=== PATIENT | female | born 1995 | race Caucasian/White ===

== ENCOUNTER 2017-09-07 22:35 | Inpatient (IN) | END 2017-09-09 21:00 | disposition home or self-care (01) | DRG 778 ==

== ENCOUNTER 2017-09-28 06:15 | Inpatient (IN) | END 2017-10-01 15:50 | disposition home or self-care (01) | DRG 765 ==

== ENCOUNTER 2018-09-03 18:45 | Outpatient (CLI) | payer MEDICAID ==
[~2018-09-03] VITALS: Ht 165.1 cm; Wt 75.0 kg
[2018-09-03 19:00] VITALS: Ht 165.1 cm; Wt 75.0 kg
[2018-09-03 19:01] VITALS: BP 117/66; PULSE 94; RESP 17
[2018-09-03] MEDS ORDERED: TERBUTALINE 1 MG/ML INJ SC SCH (19:40)
[2018-09-03] MEDS ORDERED: LACTATED RINGER'S 1,000 ML IV ONE (19:45)
[2018-09-03] MEDS ORDERED: LACTATED RINGER'S 1,000 ML IV* SCH (20:40)
[2018-09-03] MEDS ORDERED: PREN-93 PO (22:56)
[2018-09-03] MEDS ORDERED: FER325 PO (22:56)
--- NOTE | 2018-09-03 23:11 | PN ---
Triage Information Date/Time 09/03/18 Reason for visit: labor Weeks of Gestation 34weeks /Para Diabetes: none Hypertention: none Additional information pain started since yesterday ,got worsen this am 0600 alleviated by resting ( youngest child 1yr old Objective Vital Signs Date Temp Pulse Resp B/P (MAP) Pulse Ox O2 O2 Flow FiO2 Time Delivery Rate 09/03/18 98.3 94 17 117/66 19:01 (83) Heart Rate: 150's Heart Rate Comments CAT I Contractions: >10 Minutes Apart Results/Medications Result Diagram: 09/03/182006 Results 24 hrs Laboratory Tests Test 09/03/18 19:30 09/03/18 20:07 Urine Color ISAC Urine Clarity TURBID A Urine pH 7.0 Urine Specific [place] 1.018 Urine Ketones NEGATIVE Urine Nitrite NEGATIVE Urine Bilirubin NEGATIVE Urine Urobilinogen NEGATIVE Urine Leukocyte Esterase NEGATIVE Urine Microscopic RBC 7 H Urine Microscopic WBC 10 H Urine Amorphous Crystals MANY A Urine Bacteria FEW A Urine Mucus FEW A Urine Hemoglobin 1+ H Urine Glucose 1+ H Urine Total Protein NEGATIVE White Blood Count 6.7 Red Blood Count 3.28 L Hemoglobin 9.8 L Hematocrit 29.5 L Mean Corpuscular Volume 89.9 Mean Corpuscular Hemoglobin 29.9 Mean Corpuscular Hemoglobin Concent 33.2 Red Cell Distribution Width 11.6 Platelet Count 234 Mean Platelet Volume 9.7 Immature Granulocytes % 0.300 Neutrophils % 63.0 Lymphocytes % 29.0 Monocytes % 7.0 Eosinophils % 0.4 Basophils % 0.3 Nucleated Red Blood Cells % 0.0 Immature Granulocytes # 0.020 Neutrophils # 4.2 Lymphocytes # 2.0 Monocytes # 0.5 Eosinophils # 0.0 Basophils # 0.0 Nucleated Red Blood Cells # 0.0 Medications Current Medications Lactated Ringer's 1,000 ml @ 125 mls/hr Q8H IV* ; Start 09/03/18 at 20:40 Imaging Results CVL3.3cm closed Disposition: Discharge Assessment/Plan A IUP 34weeks NIL Round ligament syndrome P rest RTH prn with routine labor instructions increase fluid intake SIMON MAZA MD Sep 03, 2018 23:11
--- NOTE | 2018-09-04 00:55 | TRIAGE ---
OB Triage Datetime Report Generated by CPN: 09/04/2018 00:54 Datetime: 09/03/2018 22:33 Stage of : OB Triage Assessment Type: Triage Labor Evaluation Frequency: Irritability/Irregular Monitor Mode: External Duration (sec)2399: 20-60 Quality: Mild Pattern: Normal: <= 5 Contractions in 10 Minutes Resting Tone [place]: Relaxed Heart Rate FHR Baseline Rate: 130 Monitor Mode: External US Variability: Moderate 6-25 bpm Accelerations: 15X15 Decelerations: Variable Category: Category II Datetime: 09/03/2018 22:30 Stage of : OB Triage Datetime: 09/03/2018 22:00 Stage of : OB Triage Labor Evaluation Frequency: Irritability/Irregular Monitor Mode: External Duration (sec)2399: 20-60 Quality: Mild Pattern: Normal: <= 5 Contractions in 10 Minutes Resting Tone [place]: Relaxed Heart Rate FHR Baseline Rate: 135 Monitor Mode: External US Variability: Moderate 6-25 bpm Accelerations: 15X15 Decelerations: None Category: Category I Datetime: 09/03/2018 21:34 Vaginal Exam Membrane Status: Intact Datetime: 09/03/2018 21:00 Stage of : OB Triage Labor Evaluation Frequency: Irritability/Irregular Monitor Mode: External Duration (sec)2399: 20-50 Quality: Mild Pattern: Normal: <= 5 Contractions in 10 Minutes Resting Tone [place]: Relaxed Heart Rate FHR Baseline Rate: 140 Monitor Mode: External US Variability: Moderate 6-25 bpm Accelerations: 15X15 Decelerations: Variable Category: Category II Datetime: 09/03/2018 20:18 Stage of : OB Triage Comments: Audible excessive movt. Datetime: 09/03/2018 20:05 Assessment Type: Triage Datetime: 09/03/2018 20:00 Stage of : OB Triage Labor Evaluation Frequency: Irritability/Irregular Monitor Mode: External Duration (sec)2399: 20-60 Quality: Mild Pattern: Normal: <= 5 Contractions in 10 Minutes Resting Tone [place]: Relaxed (Annotations: Abdomen soft to palpation) Heart Rate FHR Baseline Rate: 145 Monitor Mode: External US Variability: Moderate 6-25 bpm Accelerations: 15X15 Decelerations: None Category: Category I Datetime: 09/03/2018 19:41 Stage of : OB Triage Datetime: 09/03/2018 19:24 Stage of : OB Triage Datetime: 09/03/2018 19:21 Stage of : OB Triage Datetime: 09/03/2018 19:15 Stage of : OB Triage Assessment Type: Triage Maternal Assessment Level of Consciousness: Fully Conscious DTR's/Clonus: DTRs 2+; No Clonus Headache: Denies Blurred Vision: No Respiratory Effort: Unlabored; Regular Rhythm; Equal Expansion Breath Sounds, Left: Clear and Equal Breath Sounds, Right: Clear and Equal Nausea/Vomiting: Denies RUQ Epigastric Pain: Denies Lower Extremities Edema: None Degree: None Upper Extremities Edema: None Degree: None Facial Edema: None Fall Risk Assessment History of Falling: (0) No Secondary Diagnosis: (0) No Ambulatory Aid: (0) Bedrest/Nurse Assist IV Therapy: (0) No Gait: (0) Normal/Bedrest/Immobile Mental Status: (0) Oriented to Own Ability Fall Score: 0 Fall Risk Score Definition: No Risk: No action required Pain Assessment Pain Scale: 5 Pain Presence: Intermittent Pain Type: Cramping; Contraction; Pressure Pain Location: Abdomen; Back Pain Relief Measures: Comfort Measures Datetime: 09/03/2018 19:03 Assessment Type: Triage Maternal Assessment Level of Consciousness: Fully Conscious DTR's/Clonus: DTRs 2+; No Clonus Headache: Denies Blurred Vision: No Respiratory Effort: Unlabored; Regular Rhythm; Equal Expansion Breath Sounds, Left: Clear and Equal Breath Sounds, Right: Clear and Equal Nausea/Vomiting: Denies RUQ Epigastric Pain: Denies Lower Extremities Edema: None Degree: None Upper Extremities Edema: None Degree: None Facial Edema: None Fall Risk Assessment History of Falling: (0) No Secondary Diagnosis: (0) No Ambulatory Aid: (0) Bedrest/Nurse Assist IV Therapy: (0) No Gait: (0) Normal/Bedrest/Immobile Mental Status: (0) Oriented to Own Ability Fall Score: 0 Fall Risk Score Definition: No Risk: No action required Datetime: 09/03/2018 19:02 Time of Arrival: 09/03/2018 18:35 EGA: 34.0 Arrived By: Wheelchair Arrived From: Home Chief Complaint: Pt. came to ob triage c/o uc since 0600 this am Movement: Present Contractions: Irregular Time Contractions Began: 09/03/2018 06:00 Contractions: [id number] Rupture of Membranes: Denies Vaginal Bleeding: None Vaginal Discharge: Denies Recent Sexual Intercouse: Denies Abdominal Trauma: Not Applicable Patient Complaints: Contractions; Cramping; Back Pain Time Provider Notified: 09/03/2018 19:24 Provider Notified: Initial Plan: r/o labor
== END 2018-09-03 22:59 | disposition home or self-care (01) ==
LOC: OBT 18:45 → L-D 18:48 → OBT 22:59
PROVIDERS: ATTEND Obstetrics & Gynecology
DX: O60.03 Preterm labor without delivery, third trimester (principal); Z3A.34 34 weeks gestation of pregnancy
CPT/HCPCS: 36415; 76817; 81001; 85025; 87086; 96360; 96361; 96372; J3105; J7120; Z7500; G0463

== ENCOUNTER 2018-09-11 17:02 | Inpatient (IN) | payer MEDICAID ==
[~2018-09-11] VITALS: Ht 167.6 cm; Wt 74.8 kg
[~2018-09-11 17:02] MED LIST: FER325 PO; PREN-93 PO
[2018-09-11 17:09] VITALS: BP 100/63; Ht 167.6 cm; Wt 74.8 kg
--- NOTE | 2018-09-11 17:33 | TRIAGE ---
OB Triage Datetime Report Generated by CPN: 09/11/2018 17:33 Datetime: 09/11/2018 17:23 Stage of : OB Triage Assessment Type: Triage Maternal Assessment Level of Consciousness: Fully Conscious DTR's/Clonus: DTRs 2+; No Clonus Headache: Denies Blurred Vision: No Respiratory Effort: Unlabored; Regular Rhythm; Equal Expansion Breath Sounds, Left: Clear and Equal Breath Sounds, Right: Clear and Equal Nausea/Vomiting: Denies RUQ Epigastric Pain: Denies Lower Extremities Edema: None Degree: None Upper Extremities Edema: None Degree: None Facial Edema: None Temperature Route: Oral Fall Risk Assessment History of Falling: (0) No Secondary Diagnosis: (0) No Ambulatory Aid: (0) Bedrest/Nurse Assist IV Therapy: (0) No Gait: (0) Normal/Bedrest/Immobile Mental Status: (0) Oriented to Own Ability Fall Score: 0 Fall Risk Score Definition: No Risk: No action required Labor Evaluation Monitor Mode: External Heart Rate FHR Baseline Rate: 135 Monitor Mode: External US Variability: Moderate 6-25 bpm Accelerations: 15X15 Decelerations: None Category: Category I Pain Assessment Pain Scale: 5 Pain Presence: Intermittent Pain Type: Contraction Pain Location: Abdomen Vaginal Exam Dilatation (cms): 0.5 Effacement (%): 60 Station: -3 Exam By: Cabrera DAI Datetime: 09/11/2018 17:21 Time of Arrival: 09/11/2018 16:50 EGA: 35.1 Arrived By: Ambulatory Arrived From: Home Chief Complaint: UC'S Movement: Present Contractions: Regular Time Contractions Began: 09/11/2018 12:00 Rupture of Membranes: Denies Vaginal Bleeding: None Vaginal Discharge: Denies Recent Sexual Intercouse: Denies Abdominal Trauma: Not Applicable Patient Complaints: Contractions Time Provider Notified: 09/11/2018 17:32 Provider Notified: DR. QUACH Initial Plan: EFM X2 Datetime: 09/03/2018 19:15 Fall Score: 0 Fall Risk Score Definition: No Risk: No action required Datetime: 09/03/2018 19:03 Fall Score: 0 Fall Risk Score Definition: No Risk: No action required Datetime: 09/03/2018 19:02 EGA: 34.0
[2018-09-11] MEDS ORDERED: LACTATED RINGER'S 1,000 ML IV SCH (17:35)
[2018-09-11] MEDS ORDERED: MAGNESIUM SULFATE 4 GM/100 ML 100 ML IV ONE ×2 (18:00→21:00)
[2018-09-11] MEDS ORDERED: MISOPROSTOL 200 MCG TAB PR PRN (18:00)
[2018-09-11] MEDS ORDERED: METHYLERGONOVINE 0.2 MG INJ IM PRN (18:00)
[2018-09-11] MEDS ORDERED: OXYTOCIN 30 UNITS/LR 500 ML IV PRN (18:00)
[2018-09-11] MEDS ORDERED: DEXAMETHASONE 4 MG/ML 5 ML INJ IM SCH (18:00)
[2018-09-11] MEDS ORDERED: AMPICILLIN 2 GM/NS (PMX) 100 ML IV ONE (18:00)
[2018-09-11] MEDS ORDERED: CARBOPROST 250 MCG INJ IM PRN (18:00)
[2018-09-11] MEDS ORDERED: OXYTOCIN 30 UNITS/LR 500 ML IV SCH ×2 (18:00)
[2018-09-11] MEDS: LACTATED RINGER'S 1,000 ML IV SCH ×4 (18:30→20:45)
[2018-09-11] MEDS: MAGNESIUM SULFATE 20 GM/500 ML 500 ML IV SCH ×2 (19:00→21:16)
[2018-09-11] MEDS: ACETAMINOPHEN 325 MG TAB PO PRN (21:07)
--- NOTE | 2018-09-11 21:23 | HP ---
Date/Time of Note Date/Time of Note DATE: 09/11/18 TIME: 21:20 OB - History Hx of Present Chief Complaint: contractions Estimated Due Date: Oct 16, 2018 : 8 Para: 6 Spontaneous : 1 Therapeutic : 0 Care: Good Care Ultrasounds: Normal mid trimester US Medical Complications: None Past Family/Social History * Past Medical, Surgical, Family and Obstetric Histories reviewed from chart. OB Admission Exam Vital Signs Vital Signs Vital Signs Date Temp Pulse Resp B/P (MAP) Pulse Ox O2 O2 Flow FiO2 Time Delivery Rate 09/11/18 98.6 100/63 17:09 (75) Physical Exam HEENT: WNL Heart: Rhythm Normal Lungs: Clear, Equal Abdomen: WNL Extremities: Normal Reflexes: Normal Cervical Dilatation: Fingertip Effacement: 50% Station: -1 Membranes: Intact Heart Rate: 120's Accelerations: Accelerations Present Decelerations: No Decelerations Varibility: Moderate Contractions on Admission: < 5 Minutes Apart OB Assessment/Plan Reason for admission: labor Plan: Other Other plan: Admit IV magnesium sulfate IM steroids LASHA GILES MD Sep 11, 2018 21:23
[2018-09-11] MEDS ORDERED: AMPICILLIN 1 GM/NS (PMX) 50 ML IV SCH (22:00)
[2018-09-11] MEDS: DEXAMETHASONE 4 MG/ML 5 ML INJ IM SCH (22:11)
--- NOTE | 2018-09-12 03:27 | TRIAGE ---
OB Triage Datetime Report Generated by CPN: 09/12/2018 03:27 Datetime: 09/12/2018 01:30 Frequency: X7 Monitor Mode: External Duration (sec)2399: 40-70 Quality: Mild Resting Tone [place]: Relaxed FHR Baseline Rate: 130 Monitor Mode: External US Variability: Moderate 6-25 bpm Accelerations: 15X15 Decelerations: None Category: Category I Pain Presence: None/Denies Datetime: 09/12/2018 00:30 Frequency: 4-8 Monitor Mode: External Duration (sec)2399: 40-70 Quality: Mild Resting Tone [place]: Relaxed FHR Baseline Rate: 135 Monitor Mode: External US Variability: Moderate 6-25 bpm Accelerations: 15X15 Decelerations: None Category: Category I Pain Scale: 3 Pain Presence: Intermittent Pain Type: Contraction Pain Location: Abdomen Pain Relief Measures: Comfort Measures Pain Assessment Comments: 3 Datetime: 09/11/2018 23:30 Stage of : Antepartum Assessment Type: Ongoing Assessment Level of Consciousness: Fully Conscious Level of Consciousness: Fully Conscious DTR's/Clonus: DTRs 2+; No Clonus Headache: Denies Blurred Vision: No Respiratory Effort: Unlabored; Regular Rhythm; Equal Expansion Breath Sounds, Left: Clear and Equal Breath Sounds, Right: Clear and Equal Nausea/Vomiting: Denies RUQ Epigastric Pain: Denies Lower Extremities Edema: None Degree: None Upper Extremities Edema: None Degree: None Facial Edema: None Temperature Route: Oral History of Falling: (0) No Secondary Diagnosis: (0) No Ambulatory Aid: (0) Bedrest/Nurse Assist IV Therapy: (0) No Gait: (0) Normal/Bedrest/Immobile Mental Status: (0) Oriented to Own Ability Fall Score: 0 Fall Risk Score Definition: No Risk: No action required Pain Presence: Intermittent Pain Type: Contraction Pain Location: Abdomen Pain Relief Measures: Pain Medication Given; Comfort Measures (Annotations: BY ANOTHER RN IN TRIAGE.) Datetime: 09/11/2018 20:49 Pain Scale: 8 Pain Presence: Constant Pain Type: Ache Pain Location: Head Pain Goal: 3 Datetime: 09/11/2018 19:29 Stage of : OB Triage Frequency: 2-6 Monitor Mode: External Quality: Moderate Pattern: Normal: <= 5 Contractions in 10 Minutes Resting Tone [place]: Relaxed FHR Baseline Rate: 135 Monitor Mode: External US FHR Baseline Changes: No Baseline Change Variability: Moderate 6-25 bpm Accelerations: 15X15 Decelerations: None Category: Category I Pain Scale: 6 Pain Presence: Intermittent Pain Type: Contraction Pain Location: Abdomen; Back Datetime: 09/11/2018 18:25 Stage of : OB Triage Frequency: 1-3 Monitor Mode: External Duration (sec)2399: 60 Pattern: Normal: <= 5 Contractions in 10 Minutes Resting Tone [place]: Relaxed FHR Baseline Rate: 135 Monitor Mode: External US Variability: Moderate 6-25 bpm Accelerations: 15X15 Decelerations: None Category: Category I Pain Scale: 7 Pain Presence: Intermittent Pain Type: Contraction Pain Location: Abdomen Pain Goal: 0 Pain Relief Measures: Comfort Measures Datetime: 09/11/2018 18:12 Comments: PATIENT REFUSING ADMISSION - ASUMED CARE OF PATIENT FOR IV HYDRATION Datetime: 09/11/2018 18:01 Stage of : OB Triage Datetime: 09/11/2018 17:57 Stage of : OB Triage Datetime: 09/11/2018 17:23 Fall Score: 0 Fall Risk Score Definition: No Risk: No action required Datetime: 09/11/2018 17:21 EGA: 35.1 Datetime: 09/03/2018 19:15 Fall Score: 0 Fall Risk Score Definition: No Risk: No action required Datetime: 09/03/2018 19:03 Fall Score: 0 Fall Risk Score Definition: No Risk: No action required Datetime: 09/03/2018 19:02 EGA: 34.0
[2018-09-12] MEDS: MAGNESIUM SULFATE 20 GM/500 ML 500 ML IV SCH ×3 (03:45→08:59)
[2018-09-12] MEDS: LACTATED RINGER'S 1,000 ML IV SCH ×2 (04:40→08:56)
[2018-09-12] MEDS: ACETAMINOPHEN 325 MG TAB PO PRN (09:42)
[2018-09-12] MEDS: DEXAMETHASONE 4 MG/ML 5 ML INJ IM SCH (10:09)
== END 2018-09-12 15:00 | disposition left against medical advice (07) | DRG 833 ==
LOC: OBT 17:02 → L-D 17:02 → INTOOBSV 17:30 → OBT 17:30 → OBSVTOIN 17:30 → PP1 23:32
PROVIDERS: ADMIT Obstetrics & Gynecology; ATTEND Obstetrics & Gynecology
DX: O60.03 Preterm labor without delivery, third trimester (principal)
CPT/HCPCS: 36415; 80053; 81001; 83735; 85025; 85610; 85730; 86592; 86850; 86900; 86901; 96360; 96361; 96375; G0463; J1100; J3475; J7120

== ENCOUNTER 2018-09-23 20:04 | Outpatient (CLI) | payer MEDICAID ==
[~2018-09-23] VITALS: Ht 165.1 cm; Wt 74.9 kg
[2018-09-23 20:24] VITALS: Ht 165.1 cm; Wt 74.9 kg
[2018-09-23] MEDS ORDERED: LACTATED RINGER'S 1,000 ML IV SCH ×2 (20:54→21:21)
[2018-09-23] MEDS ORDERED: MAGNESIUM SULFATE 4 GM/100 ML 100 ML IV ONE (21:30)
[2018-09-23] MEDS ORDERED: BETAMET NA PHOS/AC(6 MG/ML) 2 ML INJ SYG IM SCH (21:30)
[2018-09-23] MEDS ORDERED: CA GLUCONATE (GM) 10% 10ML INJ IV PRN (21:30)
--- NOTE | 2018-09-23 21:55 | PN ---
Triage Information Date/Time Reason for visit: Uterine contractions Weeks of Gestation 35 weeks /Para Diabetes: none Hypertention: none Objective Heart Rate: 120's Heart Rate Comments Reactive Contractions: < 5 Minutes Apart Exam cervix 1 cm Results/Medications Medications Current Medications Lactated Ringer's 1,000 ml @ 125 mls/hr Q8H IV Last administered on 09/23/18at 21:15; Admin Dose 125 MLS/HR; Start 09/23/18 at 20:54 Lactated Ringer's 1,000 ml @ 75 mls/hr [id number] IV ; Start 09/23/18 at 21:21 Magnesium Sulfate 100 ml @ 200 mls/hr ONCE ONCE IV ; Start 09/23/18 at 21:30; Stop 09/23/18 at 21:59 Magnesium Sulfate 500 ml @ 50 mls/hr Q10H IV ; Start 09/23/18 at 22:00 Prenat Multivit/ [place]/Iron/Folic Ac () 1 tab DAILY PO ; Start 09/24/18 at 09:00 Calcium Gluconate (Ca Gluc) 1 gm ONCE PRN IV FOR MAGNESIUM TOXICITY; Start 09/23/18 at 21:30 Betamethasone Acet/Betameth SodPhos (Celestone Soluspan) 12 mg Q24H IM ; Start 09/23/18 at 21:30; Stop 09/24/18 at 21:31 Disposition: Signed out against medical advice Assessment/Plan Patient is advised to be admitted for tocolysis and to finish her course of steroids. Patient states she neeeds to leave the hospital in order to take care of her other children. Patient is extensively counseled about the potential risks of uterine rupture. Patient states she understands and signed out against medical advice. LASHA GILES MD Sep 23, 2018 21:54
[2018-09-23] MEDS ORDERED: MAGNESIUM SULFATE 20 GM/500 ML 500 ML IV SCH (22:00)
--- NOTE | 2018-09-23 23:26 | TRIAGE ---
OB Triage Datetime Report Generated by CPN: 09/23/2018 23:25 Datetime: 09/23/2018 21:55 Stage of : OB Triage Datetime: 09/23/2018 21:43 Labor Evaluation Frequency: 3-5 Monitor Mode: External Duration (sec)2399: 50-80 Pattern: Normal: <= 5 Contractions in 10 Minutes Heart Rate FHR Baseline Rate: 135 Monitor Mode: External US FHR Baseline Changes: No Baseline Change Variability: Moderate 6-25 bpm Accelerations: 15X15 Datetime: 09/23/2018 21:00 Monitor Mode: External Pattern: Normal: <= 5 Contractions in 10 Minutes Contraction Comments: LOW FREQUENCY, HIGH AMPLITUDE UC'S Heart Rate FHR Baseline Rate: 135 Monitor Mode: External US FHR Baseline Changes: No Baseline Change Variability: Moderate 6-25 bpm Accelerations: 15X15 Category: Category I Datetime: 09/23/2018 20:31 Vaginal Exam Dilatation (cms): 1.5 Effacement (%): 60 Station: -3 Exam By: césar rn Datetime: 09/23/2018 20:21 Stage of : OB Triage Assessment Type: Triage Maternal Assessment Level of Consciousness: Fully Conscious Headache: Denies Blurred Vision: No Respiratory Effort: Unlabored; Regular Rhythm; Equal Expansion Breath Sounds, Left: Clear and Equal Breath Sounds, Right: Clear and Equal Nausea/Vomiting: Denies RUQ Epigastric Pain: Denies Facial Edema: None Temperature Route: Oral Fall Risk Assessment History of Falling: (0) No Secondary Diagnosis: (0) No Ambulatory Aid: (0) Bedrest/Nurse Assist IV Therapy: (0) No Gait: (0) Normal/Bedrest/Immobile Mental Status: (0) Oriented to Own Ability Fall Score: 0 Fall Risk Score Definition: No Risk: No action required Datetime: 09/23/2018 19:55 Time of Arrival: 09/23/2018 19:55 EGA: 35.3 Arrived By: Wheelchair Arrived From: Home Chief Complaint: uterine contactions since 1500 Movement: Present Contractions: Regular Time Contractions Began: 09/23/2018 15:00 Contractions: q5min Rupture of Membranes: Denies Vaginal Bleeding: None Vaginal Discharge: Denies Recent Sexual Intercouse: Denies Abdominal Trauma: Not Applicable Patient Complaints: Contractions Time Provider Notified: 09/23/2018 21:20 Provider Notified: Delshad Initial Plan: efm, call OB Datetime: 09/12/2018 14:30 Labor Evaluation Frequency: IRRITABILITY NOTED Monitor Mode: External Pattern: Normal: <= 5 Contractions in 10 Minutes Resting Tone Marmet: Relaxed Heart Rate FHR Baseline Rate: 140 Monitor Mode: External US FHR Baseline Changes: No Baseline Change Variability: Moderate 6-25 bpm Accelerations: 15X15 Decelerations: None Category: Category I Datetime: 09/12/2018 14:00 Labor Evaluation Frequency: NONE + IRRITABILITY NOTED Monitor Mode: External Pattern: Normal: <= 5 Contractions in 10 Minutes Resting Tone [place]: Relaxed Heart Rate FHR Baseline Rate: 135 Monitor Mode: External US FHR Baseline Changes: No Baseline Change Variability: Moderate 6-25 bpm Accelerations: 15X15 Decelerations: None Category: Category I Datetime: 09/12/2018 13:30 Labor Evaluation Frequency: X1 Monitor Mode: External Duration (sec)2399: 40 Quality: Mild Pattern: Normal: <= 5 Contractions in 10 Minutes Resting Tone Marmet: Relaxed Heart Rate FHR Baseline Rate: 125 Monitor Mode: External US FHR Baseline Changes: No Baseline Change Variability: Moderate 6-25 bpm Accelerations: 15X15 Decelerations: None Category: Category I Datetime: 09/12/2018 13:00 Labor Evaluation Frequency: X1 + IRRITABILITY NOTED Monitor Mode: External Duration (sec)2399: 40 Quality: Mild Pattern: Normal: <= 5 Contractions in 10 Minutes Resting Tone Marmet: Relaxed Heart Rate FHR Baseline Rate: 130 Monitor Mode: External US FHR Baseline Changes: No Baseline Change Variability: Moderate 6-25 bpm Accelerations: 15X15 Decelerations: None Category: Category I Datetime: 09/12/2018 12:30 Labor Evaluation Frequency: X1 +IRRITABILITY Monitor Mode: External Duration (sec)2399: 50 Pattern: Normal: <= 5 Contractions in 10 Minutes Resting Tone Marmet: Relaxed Heart Rate FHR Baseline Rate: 130 Monitor Mode: External US FHR Baseline Changes: No Baseline Change Variability: Moderate 6-25 bpm Accelerations: 15X15 Decelerations: None Category: Category I Datetime: 09/12/2018 12:00 Labor Evaluation Frequency: X2 Monitor Mode: External Duration (sec)2399: 40-50 Quality: Mild Pattern: Normal: <= 5 Contractions in 10 Minutes Resting Tone [place]armet: Relaxed Heart Rate FHR Baseline Rate: 125 Monitor Mode: External US FHR Baseline Changes: No Baseline Change Variability: Moderate 6-25 bpm Accelerations: 15X15 Decelerations: None Category: Category I Datetime: 09/12/2018 11:30 Labor Evaluation Frequency: IRRITABILITY NOTED Labor Evaluation Frequency: NONE Monitor Mode: External Pattern: Normal: <= 5 Contractions in 10 Minutes Resting Tone Marmet: Relaxed Heart Rate FHR Baseline Rate: 125 Monitor Mode: External US FHR Baseline Changes: No Baseline Change Variability: Moderate 6-25 bpm Accelerations: 15X15 Decelerations: None Category: Category I Datetime: 09/12/2018 11:00 Labor Evaluation Frequency: X1 Monitor Mode: External Duration (sec)2399: 40 Quality: Mild Pattern: Normal: <= 5 Contractions in 10 Minutes Resting Tone Marmet: Relaxed Heart Rate FHR Baseline Rate: 135 Monitor Mode: External US FHR Baseline Changes: No Baseline Change Variability: Moderate 6-25 bpm Accelerations: 15X15 Decelerations: None Category: Category I Datetime: 09/12/2018 10:30 Labor Evaluation Frequency: IRRITABILITY NOTED Monitor Mode: External Pattern: Normal: <= 5 Contractions in 10 Minutes Resting Tone [place]armet: Relaxed Heart Rate FHR Baseline Rate: 135 Monitor Mode: External US FHR Baseline Changes: No Baseline Change Variability: Moderate 6-25 bpm Accelerations: 15X15 Decelerations: None Category: Category I Datetime: 09/12/2018 10:00 Labor Evaluation Frequency: IRRITABILITY NOTED Monitor Mode: External Pattern: Normal: <= 5 Contractions in 10 Minutes Resting Tone Marmet: Relaxed Heart Rate FHR Baseline Rate: 150 Monitor Mode: External US FHR Baseline Changes: No Baseline Change Variability: Moderate 6-25 bpm Accelerations: 15X15 Decelerations: None Category: Category I Datetime: 09/12/2018 09:30 Labor Evaluation Frequency: NONE Monitor Mode: External Pattern: Normal: <= 5 Contractions in 10 Minutes Resting Tone [place]armet: Relaxed Heart Rate FHR Baseline Rate: 130 Monitor Mode: External US FHR Baseline Changes: No Baseline Change Variability: Moderate 6-25 bpm Accelerations: 15X15 Decelerations: None Category: Category I Datetime: 09/12/2018 09:00 Labor Evaluation Frequency: NONE Monitor Mode: External Pattern: Normal: <= 5 Contractions in 10 Minutes Resting Tone [place]armet: Relaxed Heart Rate FHR Baseline Rate: 130 Monitor Mode: External US FHR Baseline Changes: No Baseline Change Variability: Moderate 6-25 bpm Accelerations: 15X15 Decelerations: None Category: Category I Datetime: 09/12/2018 08:30 Labor Evaluation Frequency: IRRITABILITY NOTED Monitor Mode: External Pattern: Normal: <= 5 Contractions in 10 Minutes Resting Tone [place]armet: Relaxed Heart Rate FHR Baseline Rate: 125 Monitor Mode: External US FHR Baseline Changes: No Baseline Change Variability: Moderate 6-25 bpm Accelerations: 15X15 Decelerations: None Category: Category I Datetime: 09/12/2018 08:00 Monitor Mode: External US FHR Baseline Changes: No Baseline Change Variability: Minimal - Undetectable to <=5 bpm Accelerations: 10X10 Decelerations: None Category: Category II Datetime: 09/12/2018 07:57 Assessment Type: Ongoing Assessment Maternal Assessment Level of Consciousness: Fully Conscious DTR's/Clonus: DTRs 2+; No Clonus Headache: Localized Blurred Vision: No Respiratory Effort: Unlabored; Regular Rhythm; Equal Expansion Breath Sounds, Left: Clear and Equal Breath Sounds, Right: Clear and Equal Nausea/Vomiting: Denies RUQ Epigastric Pain: Denies Lower Extremities Edema: None Upper Extremities Edema: None Facial Edema: None Fall Risk Assessment History of Falling: (0) No Secondary Diagnosis: (0) No Ambulatory Aid: (0) Bedrest/Nurse Assist IV Therapy: (20) Yes Gait: (0) Normal/Bedrest/Immobile Mental Status: (0) Oriented to Own Ability Fall Score: 20 Fall Risk Score Definition: No Risk: No action required Datetime: 09/12/2018 07:30 Labor Evaluation Frequency: X2 Monitor Mode: External Duration (sec)2399: 60-70 Quality: Mild Pattern: Normal: <= 5 Contractions in 10 Minutes Resting Tone Marmet: Relaxed Heart Rate FHR Baseline Rate: 125 Monitor Mode: External US FHR Baseline Changes: No Baseline Change Variability: Moderate 6-25 bpm Accelerations: 15X15 Decelerations: None Category: Category I Datetime: 09/12/2018 06:30 Labor Evaluation Frequency: OCCASIONAL Monitor Mode: External Duration (sec)2399: 40-50 Quality: Mild Resting Tone Marmet: Relaxed Heart Rate FHR Baseline Rate: 125 Monitor Mode: External US Variability: Moderate 6-25 bpm Accelerations: 15X15 Decelerations: None Category: Category I Pain Presence: None/Denies Datetime: 09/12/2018 05:37 Maternal Assessment Level of Consciousness: Fully Conscious DTR's/Clonus: DTRs 2+ Headache: Denies Blurred Vision: No Respiratory Effort: Unlabored; Labored; Equal Expansion Breath Sounds, Left: Clear and Equal Breath Sounds, Right: Clear and Equal Nausea/Vomiting: Denies Datetime: 09/12/2018 05:30 Labor Evaluation Frequency: OCCASIONAL Monitor Mode: External Duration (sec)2399: 40-50 Resting Tone Marmet: Relaxed Heart Rate FHR Baseline Rate: 135 Monitor Mode: External US Variability: Moderate 6-25 bpm Accelerations: 15X15 Decelerations: None Category: Category I Pain Presence: None/Denies Datetime: 09/12/2018 04:30 Labor Evaluation Frequency: X2 Monitor Mode: External Duration (sec)2399: 50-60 Quality: Mild Resting Tone M[place]: Relaxed Heart Rate FHR Baseline Rate: 125 Monitor Mode: External US Variability: Moderate 6-25 bpm Accelerations: 15X15 Decelerations: None Category: Category I Pain Presence: None/Denies Pain Assessment Comments: PT DENIES FEELING ANY UC'S OR HAVING ANY VAGINAL BLEEDING. Datetime: 09/12/2018 03:30 Labor Evaluation Frequency: irregular Monitor Mode: External Duration (sec)2399: 40-60 Quality: Mild Resting Tone Marm[place]: Relaxed Heart Rate FHR Baseline Rate: 125 Monitor Mode: External US Variability: Moderate 6-25 bpm Accelerations: 15X15 Decelerations: None Category: Category I Datetime: 09/12/2018 02:30 Labor Evaluation Frequency: x5 Monitor Mode: External Duration (sec)2399: 50-70 Quality: Mild Resting Tone [place]: Relaxed Heart Rate FHR Baseline Rate: 130 Monitor Mode: External US Variability: Moderate 6-25 bpm Accelerations: 15X15 Decelerations: None Category: Category I Datetime: 09/11/2018 23:30 Fall Score: 0 Fall Risk Score Definition: No Risk: No action required Datetime: 09/11/2018 22:56 FHR Baseline Changes: No Baseline Change Variability: Moderate 6-25 bpm Accelerations: 15X15 Decelerations: Variable Category: Category I Datetime: 09/11/2018 22:19 Monitor Mode: External Quality: Mild Pattern: Normal: <= 5 Contractions in 10 Minutes Resting Tone [place]arm[place]: Relaxed Heart Rate FHR Baseline Rate: 130 Monitor Mode: External US FHR Baseline Changes: No Baseline Change Variability: Moderate 6-25 bpm Accelerations: 15X15 Decelerations: None Category: Category I Pain Assessment Pain Scale: 4 Pain Presence: Intermittent Pain Type: Contraction Pain Location: Abdomen Datetime: 09/11/2018 21:29 Labor Evaluation Frequency: 2-5 Monitor Mode: External Duration (sec)2399: 30-60 Quality: Mild Pattern: Normal: <= 5 Contractions in 10 Minutes Resting Tone Marmet: Relaxed Heart Rate FHR Baseline Rate: 130 Monitor Mode: External US FHR Baseline Changes: No Baseline Change Variability: Moderate 6-25 bpm Accelerations: 15X15 Decelerations: None Category: Category I Datetime: 09/11/2018 20:25 Stage of : OB Triage Labor Evaluation Frequency: 2-4 Monitor Mode: External Quality: Moderate Pattern: Normal: <= 5 Contractions in 10 Minutes Resting Tone Marmet: Relaxed Heart Rate FHR Baseline Rate: 140 Monitor Mode: External US FHR Baseline Changes: No Baseline Change Variability: Moderate 6-25 bpm Accelerations: 15X15 Decelerations: None Category: Category I Datetime: 09/11/2018 20:00 Stage of : OB Triage Heart Rate FHR Baseline Rate: 140 Monitor Mode: External US FHR Baseline Changes: No Baseline Change Variability: Moderate 6-25 bpm Accelerations: 15X15 Decelerations: Variable Category: Category II Pain Assessment Pain Scale: 8 Pain Presence: Intermittent Pain Type: Sharp; Contraction Pain Location: Abdomen Pain Assessment Comments: Pt c/o inc pain Datetime: 09/11/2018 17:23 Fall Score: 0 Fall Risk Score Definition: No Risk: No action required Datetime: 09/11/2018 17:21 EGA: 33.5 Datetime: 09/03/2018 19:15 Fall Score: 0 Fall Risk Score Definition: No Risk: No action required Datetime: 09/03/2018 19:03 Fall Score: 0 Fall Risk Score Definition: No Risk: No action required Datetime: 09/03/2018 19:02 EGA: 32.4
[2018-09-24] MEDS ORDERED: PRENATAL VITAMIN PO SCH (09:00)
== END 2018-09-23 21:55 | disposition left against medical advice (07) ==
LOC: OBT 20:04 → L-D 20:08 → OBT 21:55
PROVIDERS: ATTEND Obstetrics & Gynecology
DX: O62.9 Abnormality of forces of labor, unspecified (principal); Z3A.35 35 weeks gestation of pregnancy; Z53.21 Procedure and treatment not carried out due to patient leaving prior to being seen by health care provider
CPT/HCPCS: 36415; 81001; 96360; 96361; J0702; J7120; Z7500; G0463

== ENCOUNTER 2018-10-02 18:08 | Inpatient (IN) | payer MEDICAID ==
[~2018-10-02] VITALS: Ht 152.4 cm; Wt 75.9 kg
[~2018-10-02 18:08] MED LIST changes: +OXYTOCIN 30 UNITS/LR 500 ML BAG IV ONE
[2018-10-02 18:22] VITALS: Ht 152.4 cm; Wt 75.9 kg
--- NOTE | 2018-10-02 19:03 | TRIAGE ---
OB Triage Datetime Report Generated by CPN: 10/02/2018 19:02 Datetime: 10/02/2018 18:36 Maternal Assessment Level of Consciousness: Fully Conscious DTR's/Clonus: DTRs 1+ Headache: Denies Blurred Vision: No Nausea/Vomiting: Denies RUQ Epigastric Pain: Denies Facial Edema: None Labor Evaluation Frequency: 1-4 Monitor Mode: External Duration (sec)2399: 40-80 Quality: Mild Pattern: Normal: <= 5 Contractions in 10 Minutes Resting Tone Barry: Relaxed Heart Rate FHR Baseline Rate: 145 Monitor Mode: External US Variability: Moderate 6-25 bpm Accelerations: 15X15 Decelerations: None Category: Category I Pain Assessment Pain Scale: 8 Pain Presence: Intermittent Pain Type: Cramping; Contraction Pain Location: Abdomen; Back Pain Goal: 3 Pain Assessment Comments: INCISIONAL PAIN Membrane Status: Intact Datetime: 10/02/2018 18:21 Assessment Type: Triage Maternal Assessment Level of Consciousness: Fully Conscious DTR's/Clonus: DTRs 2+; No Clonus Headache: Denies Blurred Vision: No Respiratory Effort: Unlabored; Regular Rhythm; Equal Expansion Breath Sounds, Left: Clear and Equal Breath Sounds, Right: Clear and Equal Nausea/Vomiting: Denies RUQ Epigastric Pain: Denies Lower Extremities Edema: None Degree: None Upper Extremities Edema: None Degree: None Facial Edema: None Fall Risk Assessment History of Falling: (0) No Secondary Diagnosis: (0) No Ambulatory Aid: (0) Bedrest/Nurse Assist IV Therapy: (0) No Gait: (0) Normal/Bedrest/Immobile Mental Status: (0) Oriented to Own Ability Fall Score: 0 Fall Risk Score Definition: No Risk: No action required Datetime: 10/02/2018 18:17 Vaginal Exam Dilatation (cms): 2.0 Effacement (%): 80 Station: -2 Exam By: EVELYN JACOB Vaginal Bleeding: None Cervix, Consistency: Soft Cervix, Position: Anterior Datetime: 10/02/2018 18:04 Time of Arrival: 10/02/2018 18:04 EGA: 36.5 Arrived By: Wheelchair Arrived From: Home Chief Complaint: PT CAME IN C/O UC'S AND INCISIONAL PAIN SINCE TODAY AT 1600. Movement: Present Contractions: Regular Time Contractions Began: 10/02/2018 16:00 Contractions: 5 MIN Rupture of Membranes: Denies Vaginal Bleeding: None Vaginal Discharge: Denies Recent Sexual Intercouse: Denies Abdominal Trauma: Not Applicable Patient Complaints: Contractions Additional Patient Complaints: NONE Time Provider Notified: 10/02/2018 18:19 Provider Notified: HADADIAN Initial Plan: MONITOR AND VE Datetime: 09/23/2018 20:21 Fall Score: 0 Fall Risk Score Definition: No Risk: No action required Datetime: 09/23/2018 19:55 EGA: 35.3 Datetime: 09/12/2018 07:57 Fall Score: 20 Fall Risk Score Definition: No Risk: No action required Datetime: 09/11/2018 23:30 Fall Score: 0 Fall Risk Score Definition: No Risk: No action required Datetime: 09/11/2018 17:23 Fall Score: 0 Fall Risk Score Definition: No Risk: No action required Datetime: 09/11/2018 17:21 EGA: 33.5 Datetime: 09/03/2018 19:15 Fall Score: 0 Fall Risk Score Definition: No Risk: No action required Datetime: 09/03/2018 19:03 Fall Score: 0 Fall Risk Score Definition: No Risk: No action required Datetime: 09/03/2018 19:02 EGA: 32.4
[2018-10-02] MEDS ORDERED: OXYTOCIN 30 UNITS/LR 500 ML IV SCH ×2 (19:30→22:35)
[2018-10-02] MEDS ORDERED: MISOPROSTOL 200 MCG TAB PR PRN ×2 (19:30→23:00)
[2018-10-02] MEDS ORDERED: CARBOPROST 250 MCG INJ IM PRN ×2 (19:30→23:00)
[2018-10-02] MEDS ORDERED: OXYTOCIN 30 UNITS/LR 500 ML IV PRN ×2 (19:30→23:00)
[2018-10-02] MEDS ORDERED: CEFAZOLIN 2 GM/50 ML (PMX) 50 ML IVPB SCH (19:30)
[2018-10-02] MEDS ORDERED: METHYLERGONOVINE 0.2 MG INJ IM PRN ×2 (19:30→23:00)
[2018-10-02] MEDS: LACTATED RINGER'S 1,000 ML IV SCH ×2 (19:32→19:59)
--- NOTE | 2018-10-02 19:48 | HP ---
Date/Time of Note Date/Time of Note DATE: 10/02/18 TIME: 19:38 OB - History Hx of Present Free Text/Dictation 23 years old with single intrauterine at 36 weeks and 5 days with history of 2 previous delivery complaining of uterine contractions and incisional pain. She states has feeling that her incision is getting open. She states good movement. She denies nausea, vomiting, shortness of breath, chest pain, headache, visual changes, vaginal bleeding or LOF. Chief Complaint: Uterine contraction and pain on her incision Estimated Due Date: Oct 25, 2018 : 8 Para: 6 Spontaneous : 1 Therapeutic : 0 Care: Good Care Ultrasounds: Normal mid trimester US Obstetrical Complications: None Medical Complications: None Past Family/Social History * Past Medical Hx: None Pat Surgical Hx: C/S x2 Family Hx: Negative Obstetric History: [id number] x4, C/S x2 Blood Type: A+ OB Admission Exam Vital Signs Vital Signs Blood pressure 103/67, pulse rate 70/minutes, respiratory rate 16/minutes, temperature 98.6 Physical Exam HEENT: WNL Heart: Rhythm Normal Lungs: Clear Abdomen: WNL Extremities: Normal Cervical Dilatation: 2cm Effacement: 75% Station: -2 Membranes: Intact Heart Rate: 130's Accelerations: Accelerations Present Decelerations: No Decelerations Varibility: Moderate Contractions on Admission: < 5 Minutes Apart Intensity: Moderate Last 72 hours Lab Results CBC & BMP 10/02/18 19:17 OB Assessment/Plan Other plan: 23 years old 8 para 6016 with single intrauterine at 36 weeks and 5 days with 2 previous delivery in early labor complaining of C- section incisional pain. - FHR: No sign of metabolic acidosis- Category I - Continuous EFM, toco - CBC, blood type and screen - Please see the orders 2) Anemia-hemoglobin 9.6: I strongly recommend continue ferrous sulfate 325mg twice daily for 3 months and continue vitamin. The risk of delivery including but not limited to bleeding, infection, injury to other organs (bowel, bladder, ureter, vessels, nerves), injury to fetus, blood transfusion, blood transfusion related infection, risk of anesthesia, adhesion, needs for future , removal of uterus or any other indicated surgery was discussed with the patient and her family. She expressed understanding. All of her questions were answered. She signed the informed consent. PHYSICIAN'S VERIFICATION OF INFORMED CONSENT The patient was counseled regarding the procedure, its indications, risks, potential complications and alternatives and any questions were answered. Consent was obtained. PLANNED PROCEDURE/TREATMENT: delivery with possible using vacuum/forceps and any other indicated surgery PHYSICIAN'S VERIFICATION OF INFORMED CONSENT FOR BLOOD TRANSFUSION: There is a reasonable possibility that blood transfusion will be necessary as a result of the patient's procedure. I have discussed the following with the patient/patient's legal technical support representative: An explanation of the benefits and risks of the transfusion of blood or blood products and the possible alternatives. All questions have been answered to the patient's satisfaction. INFORMED CONSENT:The patient has been informed of: The nature of the proposed care, treatment, services, medications, interventions or procedures. Potential benefits, risks or side effects, including potential problems related to recuperation. The likelihood of achieving care treatment and service goals. Reasonable alternatives to the proposed care, treatment and service. The relevant risks, benefits and side effects related to alternatives, including the possible results of not receiving care, treatment and services. When indicated, any limitations on the confidentiality of information learned from or about the patient. If appropriate, the risks, benefits and alternatives of the drugs to be used for sedation/analgesia including moderate sedation. If appropriate, patient has been provided information on the risks, benefits and alternatives to the transfusion of blood and/or blood products. If appropriate, patient has been provided information regarding the [employer]s Blood Act. JC SIN Oct 02, 2018 19:48
--- NOTE | 2018-10-02 20:01 | PREAC ---
Date/Time of Note Date/Time of Note DATE: 10/02/18 TIME: 19:59 Anesthesia Eval and Record Evaluation Time Pre-Procedure Interview DATE: 10/02/18 TIME: 19:59 Age 23 Sex female NPO: 8 hrs Preoperative diagnosis IUP Planned procedure Repeat Csection Past Medical History Past Medical History: None Surgery & Anesthesia Issues No known issue Meds Anticoagulation: No Beta Anabel within 24 hr: No Reason Beta Anabel not given: Pt. not on B-Anabel Reported Medications Vit No.124/Iron/FA ( Vitamin Tablet) 1 Each Tablet, 1 EACH PO DAILY, TAB 09/03/18 Ferrous Sulfate* (Ferrous Sulfate*) 325 Mg Tabec, 325 MG PO DAILY, TAB 09/03/18 Current Medications Lactated Ringer's 1,000 ml @ 125 mls/hr Q8H IV Last administered on 10/02/18at 19:32; Admin Dose 125 MLS/HR; Start 10/02/18 at 19:01 Cefazolin Sodium/ Dextrose 50 ml @ 100 mls/hr ONCE IVPB ; Start 10/02/18 at 19:30 Oxytocin/Lactated Ringer's 500 ml @ 125 mls/hr POST IV ; Start 10/02/18 at 19:30 Oxytocin/Lactated Ringer's 500 ml @ 0 mls/hr ONCE PRN IV .VAGINAL BLEEDING; Start 10/02/18 at 19:30 Methylergonovine Maleate (Methergine) 0.2 mg ONCE PRN IM .VAGINAL BLEEDING; Start 10/02/18 at 19:30 Carboprost Tromethamine (Hemabate) 250 mcg ONCE PRN IM .VAGINAL BLEEDING; Start 10/02/18 at 19:30 Misoprostol (Cytotec) 1,000 mcg ONCE PRN NC .VAGINAL BLEEDING; Start 10/02/18 at 19:30 Meds reviewed: Yes Allergies Coded Allergies: No Known Allergy (Unverified , 10/02/18) Allergies Reviewed: Yes Labs/Studies Labs Reviewed: Reviewed by anesthesiologist Result Diagram: 10/02/181916 Laboratory Tests 10/02/18 19:17 test: Positive Studies: ECG Pre-procedure Exam Last vitals BP:124/56, P:78, Spo2:100%, T:98,9 Airway: Adequate mouth opening, Adequate thyromental dist Mallampati: Mallampati II Teeth: Normal Lung: Normal Heart: Normal ASA Physical Status ASA physical status: 2 Emergency: None Planned Anesthetic Neuraxial: Epidural Planned Pain Management Sub-arachniod narcotics Pre-operative Attestations Prior to commencing anesthesia and surgery, the patient was re-evaluated, there was verification of: *The patient's identity *The results of appropriate recent lab work and preoperative vital signs *The above evaluation not changing prior to induction *Anesthetic plan, risk benefits, alternative and complications discussed with patient/family; questions answered; patient/family understands, accepts and wishes to proceed. JAVY MAGALLON MD Oct 02, 2018 20:01
[2018-10-02] MEDS ORDERED: OXYTOCIN 10 UNIT INJ ONE ×2 (20:35)
[2018-10-02] MEDS ORDERED: ONDANSETRON 4 MG INJ ONE (20:35)
[2018-10-02] MEDS ORDERED: morphine SULFATE/PF (10 MG/10 ML) INJ ONE (20:35)
[2018-10-02] MEDS ORDERED: PHENYLephrine 10 MG INJ ONE (20:45)
[2018-10-02] MEDS ORDERED: METOCLOPRAMIDE 10 MG INJ ONE (21:18)
[2018-10-02] MEDS ORDERED: FENTAnyl 50 MCG/ML VIAL ONE (21:20)
--- NOTE | 2018-10-02 22:16 | PAC ---
Date/Time of Note Date/Time of Note DATE: 10/02/18 TIME: 22:15 Post-Anesthesia Notes Post-Anesthesia Note Activity: WNL Respiratory function: WNL Cardiovascular function: WNL Mental status: Baseline Pain reasonably controlled: Yes Hydration appropriate: Yes Nausea/Vomiting absent: Yes Comments BP:112/56, P:82, Spo2:100%, T:98,8 JAVY MAGALLON MD Oct 02, 2018 22:16
[2018-10-02] MEDS ORDERED: DIPHENHYDRAMINE 50 MG INJ IV PRN (22:30)
[2018-10-02] MEDS ORDERED: NALOXONE (0.4 MG/ML) INJ IV PRN (22:30)
[2018-10-02] MEDS ORDERED: ONDANSETRON 4 MG INJ IV PRN (22:30)
[2018-10-02] MEDS ORDERED: morphine 2 MG INJ IV PRN (22:30)
[2018-10-02] MEDS ORDERED: KETOROLAC 30 MG INJ IV PRN (22:30)
[2018-10-02] MEDS ORDERED: LACTATED RINGER'S 1,000 ML IV SCH (22:35)
[2018-10-02] MEDS ORDERED: METHYLERGONOVINE 0.2 MG TAB PO PRN (23:00)
[2018-10-02] MEDS ORDERED: LANOLIN HPA 1 PKT TOP PRN (23:00)
[2018-10-03] VITALS (46 sets, daily range): BP systolic 68–101; BP diastolic 43–70; PULSE 64–99; RESP 0–26
[2018-10-03] MEDS ORDERED: PHENYLephrine 20MG IN 250 ML 250 ML IV SCH (02:30)
[2018-10-03] MEDS ORDERED: DOPamine-D5W 1.6 MG/ML 250 ML IV SCH (02:30)
[2018-10-03] MEDS ORDERED: DIPHTH/TET/ACEL PERTUSS (ADULT) 0.5 ML VIAL IM* ONE (11:00)
[2018-10-03] MEDS ORDERED: HYDROCODONE/APAP (5/325) TAB NGT PRN (11:00)
[2018-10-03] MEDS ORDERED: OXYTOCIN 30 UNITS/LR 500 ML IV SCH (13:30)
[2018-10-03] MEDS: OXYTOCIN 30 UNITS/LR 500 ML IV SCH (14:52)
--- NOTE | 2018-10-03 17:56 | PN ---
Date/Time of Note Date/Time of Note DATE: 10/03/18 TIME: 17:53 OB Subjective Subjective Subjective Patient seen at 07:00 POD#1 Patient is doing well. She denies nausea, vomiting, shortness of breath, chest pain, headache. She had systolic blood pressure in range of 8090 last night which required dopamine. She transferred to ICU for close monitoring, currently is on 2 units dopamine. She has been tolerating clear diet. Pain is well controlled on current medications. OB Objective Objective Objective Vital Signs Date Temp Pulse Resp B/P (MAP) Pulse Ox O2 O2 Flow FiO2 Time Delivery Rate 10/03/18 2.0 14:35 10/03/18 98.2 84 17 87/50 (62) 97 Room Air 14:30 General: AAO X 3, comfortable, NAD, appropriate mood and affect Heart: RRR +S1, +S2, no murmurs Lungs: Clear to auscultation (B/L), no rales, rhonchi or wheezing ABD: +BS. Soft, non-tender. Uterus 2 cm below umbilicus Incision: Dry dressing Flank: No CVA tenderness (B/L) LE: Mild edema. No clubbing, cyanosis, thigh or calf tenderness (B/L). Homans 'sign is negative Laboratory Tests Test 10/02/18 19:06 10/02/18 19:17 10/02/18 22:50 10/03/18 04:24 Urine Opiates NEGATIVE Screen Urine NEGATIVE Barbiturates Urine NEGATIVE Amphetamines Screen Urine NEGATIVE Benzodiazepines Screen Urine Cocaine NEGATIVE Screen Urine NEGATIVE Cannabinoids White Blood Count 6.1 10^3/ul 10.4 10^3/ul 11.0 10^3/ul Red Blood Count 3.30 10^6/ul 2.96 10^6/ul 3.29 10^6/ul Hemoglobin 9.6 g/dl 8.5 g/dl 9.6 g/dl Hematocrit 29.3 % 26.3 % 28.8 % Mean Corpuscular 88.8 fl 88.9 fl 87.5 fl Volume Mean Corpuscular 29.1 pg 28.7 pg 29.2 pg Hemoglobin Mean Corpuscular 32.8 g/dl 32.3 g/dl 33.3 g/dl Hemoglobin Concen t Red Cell 12.2 % 12.1 % 12.0 % Distribution Width Platelet Count 255 10^3/UL 216 10^3/UL 244 10^3/UL Mean Platelet 9.8 fl 9.4 fl 10.3 fl Volume Immature 0.300 % 0.500 % 0.300 % Granulocytes % Neutrophils % 62.9 % 78.6 % 75.7 % Lymphocytes % 26.6 % 15.4 % 17.9 % Monocytes % 8.9 % 4.8 % 5.7 % Eosinophils % 0.8 % 0.4 % 0.1 % Basophils % 0.5 % 0.3 % 0.3 % Nucleated Red 0.0 /100WBC 0.0 /100WBC 0.0 /100WBC Blood Cells % Immature 0.020 10^3/ul 0.050 10^3/ul 0.030 10^3/ul Granulocytes # Neutrophils # 3.8 10^3/ul 8.2 10^3/ul 8.3 10^3/ul Lymphocytes # 1.6 10^3/ul 1.6 10^3/ul 2.0 10^3/ul Monocytes # 0.5 10^3/ul 0.5 10^3/ul 0.6 10^3/ul Eosinophils # 0.1 10^3/ul 0.0 10^3/ul 0.0 10^3/ul Basophils # 0.0 10^3/ul 0.0 10^3/ul 0.0 10^3/ul Nucleated Red 0.0 10^3/ul 0.0 10^3/ul 0.0 10^3/ul Blood Cells # Prothrombin Time 12.3 Sec Prothrombin Time 1.0 Ratio INR International 0.90 Normalized Ratio Activated 24.7 Sec Partial Thrombopl ast Time Rapid Plasma NONREACTIVE Reagin Hepatitis B NEGATIVE Surface Antigen OB Assessment/Plan Other plan: 23 years old 8 para 6117 s/p repeat delivery at 36 weeks and 5 days. POD#1. She transferred to ICU for hypotension last night, she received dopamine. Currently she is afebrile, vital signs stable. [place] [address]. She will observe in ICU for next few hours, then will transfer to unit Addendum: Patient is currently doing well. She has no complaints. She is afebrile, vital sign is stable she transferred to unit. Contraception methods with R/B/A/FR discussed, she would like to have depo provera. Continue care JC SIN Oct 03, 2018 17:56
[2018-10-03] MEDS: SENNA/DOCUSATE NA (8.6MG/50MG) TAB PO SCH (20:27)
--- NOTE | 2018-10-03 21:09 | OPR ---
Operative Report Planned Procedure Procedure date Oct 02, 2018 Procedure(s) Repeat low transverse delivery Performed by see signature line Crude Oil Treater: LASHA GILES MD Anesthesiologist: JAVY MAGALLON MD Pre-procedure diagnosis 23 years old 8 para 6016 with single intrauterine at 36 weeks and 5 days with 2 previous delivery in labor [id number] Anesthesia Type: Nsxwl0z spinal Post-Procedure Post-procedure diagnosis 23 years old 8 para 6016 with single intrauterine at 36 weeks and 5 days with 2 previous delivery in labor Findings 1. Normal uterus, fallopian tubes and ovaries 2. Viable female in cephalic presentation. 8 at one minute and 9 in 5 minutes. Weight: 3105 g - 6 pound 14 ounces. 3. Placenta with three vessel cord 4. Amniotic fluid - Clear Estimated Blood Loss: 500 - 600 mls Specimen(s) none Grafts/Implant(s) none Complication(s) none Pt Condition post procedure: stable Disposition: PACU Procedure Description INDICATION AND HISTORY: A 23 years old 8 para 6016 with single intrauterine at 36 weeks and 5 days with 2 previous delivery in early labor. The risk of delivery including but not limited to bleeding, infection, injury to other organs (bowel, bladder, ureter, vessels, nerves), injury to fetus, blood transfusion, blood transfusion related infection, risk of anesthesia, adhesion, needs for future , removal of uterus or any other indicated surgery, risks with prematurity was discussed with the patient and her family. She expressed understanding. All of her questions were answered. She signed the informed consent. DESCRIPTION OF OPERATION: The patient was taken to the operating room, where she was identified and the procedure was verified. The patient received two gram of Ancef 30 minutes prior to surgery. Spinal anesthesia was placed. The patient placed in the dorsal supine position with a left tilt. The heart rate was 132 bpm. The patient was then prepped and draped in the normal sterile fashion. A Pfannenstiel skin incision was made and carried down to the fascia with knife. The fascia was incised in the midline and the fascial incision was carried laterally with knife to have the patient on patient. The superior portion of the fascial incision was then grasped with Jody clamps and tented up and dissected off the underlying rectus muscle with sharp dissection. The lower portion of the fascial incision was then made in a similar fashion. The rectus muscle was and the peritoneum was entered. The peritoneal incision was then stretched and an Colton retractor was inserted. There was a 3 cm window at right side of lower uterine segment. An incision was made in the lower uterine segment above the window in a transverse fashion with a knife and extended bluntly. The was delivered atraumatically in cephalic presentation with the above findings. The umbilical cord was clamped and cut. The neonatology resuscitation team was present and the baby was handed to them. A cord blood sample was obtained for further evaluation. The placenta and membrane, which appeared normal were Removed. The uterus was exteriorized and cleared of all clot and debris. The uterus was then closed in a two layer fashion with 0-Monocryl. At the time of closure, hemostasis was noted. The gutters were irrigated. The peritoneum was reapproximated with 3-0 Vicryl. The muscle was reapproximated with 3-0 Vicryl. The fascia was approximated with 0- Vicryl in a running fashion. The subcutaneous tissue was re approximated with 3-0 vicryl. The skin was closed with 4-0 Monocryl. All instruments, sponges and needle counts were correct x3. The patient tolerated the procedure well. She transferred to the recovery room in stable condition. Late entry note. delivery performed on 10/02/2018 JC SIN Oct 03, 2018 21:00
[2018-10-03] MEDS: HYDROCODONE/APAP (5/325) TAB GTB SCH (22:00)
[2018-10-03] MEDS: IBUPROFEN 800 MG TAB PO SCH (22:52)
[2018-10-04] MEDS: OXYTOCIN 30 UNITS/LR 500 ML IV SCH ×2 (00:52→10:52)
[2018-10-04 04:00] VITALS: BP 98/68; PULSE 72; RESP 18
[2018-10-04] MEDS: HYDROCODONE/APAP (5/325) TAB GTB SCH ×3 (06:20→21:48)
[2018-10-04] MEDS: IBUPROFEN 800 MG TAB PO SCH ×3 (06:21→21:47)
[2018-10-04 08:00] VITALS: BP 102/64; PULSE 59; RESP 18
[2018-10-04] MEDS: SENNA/DOCUSATE NA (8.6MG/50MG) TAB PO SCH ×2 (10:00→21:47)
--- NOTE | 2018-10-04 13:29 | PN ---
Date/Time of Note Date/Time of Note DATE: 10/04/18 TIME: 13:20 OB Subjective Subjective Subjective 10/04/2018 Breast feeding, Passed flatus. Denies any nausea, vomiting, Ambulating. Tolerated regular diet. OB Objective Objective Objective GA: A&O, NAD abdomen: soft, non tender, Appropriate tenderness in the incision incison: clean, dry and intact. Extremities: No calf tenderness, no edema. Breast: no evidence of engorgement, mastitis. VS - Last 72 Hours, by Label Date Temp Pulse Resp B/P (MAP) Pulse Ox O2 O2 Flow FiO2 Time Delivery Rate 10/04/18 97.8 59 18 102/64 Room Air 08:00 (77) 59 10/04/18 98.1 72 18 98/68 (78) Room Air 04:00 10/03/18 99.0 68 20 97/55 (69) 97 Room Air 20:00 68 10/03/18 2.0 14:35 10/03/18 98.2 84 17 87/50 (62) 97 Room Air 14:30 10/03/18 73 14 94/59 (71) 99 14:15 10/03/18 87 15 87/51 (63) 98 Nasal 2.0 14:00 Cannula 10/03/18 96 17 87/58 (68) 99 13:45 10/03/18 89 20 94/55 (68) 100 13:30 10/03/18 89 17 91/62 (72) 98 13:15 10/03/18 83 17 81/66 (71) 99 13:00 10/03/18 87 18 90/59 (69) 98 12:45 10/03/18 74 20 93/51 (65) 98 12:30 10/03/18 78 21 93/56 (68) 97 12:15 10/03/18 94 12:00 10/03/18 70 15 101/64 98 Nasal 4.0 12:00 (76) Cannula 10/03/18 78 16 95/70 (78) 96 11:45 10/03/18 86 17 91/57 (68) 99 11:30 10/03/18 90 18 97/62 (74) 98 11:15 10/03/18 83 16 101/59 99 11:00 (73) 10/03/18 99 23 101/64 95 10:45 (76) 10/03/18 91 23 97/63 (74) 96 10:30 10/03/18 75 17 88/61 (70) 93 10:15 10/03/18 98.8 88 24 77/58 (64) 95 Nasal 4.0 10:00 Cannula 10/03/18 74 13 82/56 (65) 94 09:45 10/03/18 73 15 90/60 (70) 96 09:30 10/03/18 76 15 84/49 (61) 95 09:15 10/03/18 80 14 87/57 (67) 95 09:00 10/03/18 84 21 73/55 (61) 90 08:45 10/03/18 77 12 86/47 (60) 95 08:30 10/03/18 78 15 92/53 (66) 94 08:15 10/03/18 Nasal 4.0 08:00 Cannula 10/03/18 83 08:00 10/03/18 90 17 68/43 (51) 92 08:00 10/03/18 76 14 92/54 (67) 94 07:45 10/03/18 76 26 94 07:30 10/03/18 84 15 93/55 (68) 95 07:15 10/03/18 76 0 84/51 (62) 94 07:00 10/03/18 82 19 87/67 (74) 92 Nasal 4.0 06:45 Cannula 10/03/18 84 17 92/67 (75) 94 06:30 10/03/18 66 11 85/52 (63) 96 Mask 6.0 06:15 10/03/18 64 15 87/54 (65) 97 05:45 10/03/18 70 14 84/51 (62) 97 05:30 10/03/18 76 16 87/57 (67) 97 05:15 10/03/18 70 14 80/50 (60) 97 Mask 6.0 05:00 10/03/18 74 16 83/53 (63) 97 04:45 10/03/18 73 15 73/47 (56) 97 04:30 10/03/18 95 6.0 04:06 10/03/18 73 04:00 10/03/18 Simple 6.0 04:00 Mask 10/03/18 73 17 83/54 (64) 95 Mask 6.0 04:00 10/03/18 74 20 87/53 (64) 92 03:45 10/03/18 85 20 83/66 (72) 92 03:30 10/03/18 78 20 86/45 (59) 89 03:15 10/03/18 97.8 26 96/49 (65) 98 High Flow 03:00 OB Assessment/Plan Other Assessment: s/p repeat section at 36 + weeks in labor POD #2 Anemia, post op asymptomatic Doing well Routine post op care Iron BID and stool softener Anticipate DC home tomorrow JAMES CASTANEDA MD Oct 04, 2018 13:29
[2018-10-04] MEDS ORDERED: DIPHTH/TET/ACEL PERTUSS (ADULT) 0.5 ML VIAL IM* ONE (15:00)
[2018-10-04 16:00] VITALS: BP 102/55; PULSE 80; RESP 18
[2018-10-04 20:05] VITALS: BP 93/55; PULSE 84; RESP 18
[2018-10-04] MEDS: MAGNESIUM HYDROXIDE 30ML CUP PO SCH (21:47)
[2018-10-05 03:45] VITALS: BP 115/71; PULSE 80; RESP 18
[2018-10-05] MEDS: HYDROCODONE/APAP (5/325) TAB GTB SCH ×2 (05:40→14:20)
[2018-10-05] MEDS: IBUPROFEN 800 MG TAB PO SCH ×2 (05:40→14:20)
[2018-10-05 08:00] VITALS: BP 111/77; PULSE 71
[2018-10-05] MEDS: SENNA/DOCUSATE NA (8.6MG/50MG) TAB PO SCH (09:00)
[2018-10-05] MEDS ORDERED: MEASLES,MUMPS,RUBELLA VACCINE INJ SC* ONE (09:00)
[2018-10-05] MEDS ORDERED: DIPHTH/TET/ACEL PERTUSS (ADULT) 0.5 ML VIAL IM* ONE (09:00)
[2018-10-05] MEDS: MAGNESIUM HYDROXIDE 30ML CUP PO SCH (09:00)
--- NOTE | 2018-10-05 11:54 | PD.PPDC ---
RACK MAKER Discharge Instruction Diagnosis [id number] Final Diagnosis: Tqujp4p s/p RC/S Condition Ymzca4Zn Patient Condition: Etnna0o Good Diet Cqast1Zo Diet: Rewaz8d Resume Regular Diet Activity/Restrictions Zmbzf8Zj Activity: Guksd5p May Shower Kzlxz8He Restrictions: Twhdk5k No Exercising No Lifting Minimize Stair-climbing No Sexual Activity Nothing in the Vagina No [place] No Tampons, douche Wound/Drain Care Instructions Jkgel4Mg Wound/Drain Care Instructions: Teepw0c Wash with soap and water Keep clean and dry Follow-up Follow-up with Physician: 2, Week/Weeks Return to clinic for Iqrgc3Vg AIR CREW OFFICER Instructions: Uauwm4v Fever greater than 101 Chills Worsening abdominal pain Excessive Vaginal Bleeding More than 2 pads per hour Unable to tolerate diet Hyedy9Do OB Instructions: Kqalf0x Breast Tenderness Depression Blurried Vision Headache Rrarc2Pl Surgical Instructions: Inlep4z Incisional Drainage Incisional Redness SIMON MAZA MD Oct 05, 2018 11:54
--- NOTE | 2018-10-05 11:57 | DS ---
Date/Time of Note Date/Time of Note DATE: 10/05/18 TIME: 11:55 Obstetrical Discharge Record Final Diagnosis Final Diagnosis: Term delivered Other Final Diagnosis postop hypotension Section Section: Repeat Complications Augmentation: No Induction: No Condition on Discharge Physical Assessment Last Vitals: VSS normotensive asymptomatic Voiding: Yes Bowel Movement: Yes Breast: Soft, non-tender Fundus: Firm Abdomen and Incision: soft wound dry Episiotomy: n/a Calf Tenderness: No Patient Condition: Stable SIMON MAZA MD Oct 05, 2018 11:57
--- NOTE | 2018-10-06 18:07 | DELSUM ---
Delivery Summary A-C Datetime Report Generated by N: 10/06/2018 18:07 DELIVERY PERSONNEL Automatic Riveting Machine Operator: Dries, Alexandro MATERNAL INFORMATION Delivery Anesthesia: Spinal Medications in Delivery: LR WITH 30 UNITS PITOCIN Delivery QBL (ml): 650 Placenta Cultured: Yes Maternal Complications: Other Other Maternal Complications: LABOR LABOR SUMMARY EDC: 10/25/2018 00:00 No. Babies in Womb: 1 (Annotations: Data stored by [facility] on behalf of user) Attempted: No Labor Anesthesia: Intrathecal LABOR INFORMATION Reason for Induction: Not Applicable Onset of Labor: 10/02/2018 15:00 Oxytocin: N/A Group B Beta Strep: Not Done Antibiotics # of Doses: 1 Antibiotics Time of Last Dose: 10/02/2018 20:38 Steroids Given: Partial Course; >24Hs before Delivery Reason Steroids Not Administered: Not Applicable MEMBRANES Membranes Rupture Method: Artificial Rupture of Membranes: 10/02/2018 21:12 Length of Rupture (hr): 0.00 Amniotic Fluid Color: Clear Amniotic Fluid Amount: Moderate Amniotic Fluid Odor: None STAGES OF LABOR Stage 3 hr: 0 Stage 3 min: 2 Total Time in Labor hr: 6 Total Time in Labor min: 14 VAGINAL DELIVERY Initial Vag Sponge Count: 20 Final Vag Sponge Count: 20 Initial Vag Sharps Count: 7 Final Vag Sharps Count: 8 Sponge Count Correct: Yes Sharps Count Correct: Yes CSECTION DELIVERY Primary Indication: Repeat Elective Secondary Indication: Repeat Elective CSection Urgency: Elective CSection Incidence: Repeat Labor: Labor Elective: Elective CSection Incision: Lower Uterine Transverse BABY A INFORMATION Delivery Date/Time: 10/02/2018 21:12 Method of Delivery: Born in Route : No : N/A Forceps: N/A Vacuum Extraction: N/A Shoulder Dystocia : N/A SHOULDER DYSTOCIA BABY A Delivery Date/Time: 10/02/2018 21:12 PRESENTATION/POSITION BABY A Presentation: Cephalic Cephalic Presentation: Vertex Vertex Position: Left Occipital Anterior Breech Presentation: N/A PLACENTA INFORMATION BABY A Placenta Delivery Time : 10/02/2018 21:14 Placenta Method of Delivery: Manual Removal Placenta Status: Delivered SCORES BABY A Heart Rate 1 min: >100 bpm Resp Effort 1 min: Good Cry Reflex Irritability 1 min: Cough/Sneeze/Pulls Away Muscle Tone 1 min: Active Motion Color 1 min: Blue/Pale Resuscitation Effort 1 min: Tactile Stimulation SCORE 1 MIN: 8 Heart Rate 5 min: >100 bpm Resp Effort 5 min: Good Cry Reflex Irritability 5 min: Cough/Sneeze/Pulls Away Muscle Tone 5 min: Active Motion Color 5 min: Body [place], Extremit Blue Resuscitation Effort 5 min: Tactile Stimulation SCORE 5 MIN: 9 Heart Rate 10 min: >100 bpm Resp Effort 10 min: Good Cry Reflex Irritability 10 min: Cough/Sneeze/Pulls Away Muscle Tone 10 min: Active Motion Color 10 min: Body [place], Extremit Blue Resuscitation Effort 10 min: Tactile Stimulation SCORE 10 MIN: 9 INFORMATION BABY A Gestational Age at Delivery: 36.5 Gestational Status: Late - 34- 36.6 Weeks Outcome : Liveborn Condition : Stable Infant Sex: Female IDENTIFICATION/MEDS BABY A ID Band Number: [id number] ID Band Location: Right Leg; Left Arm Sensor Applied: Yes Sensor Number: [id number] Sensor Location : Cord Clamp Vitamin K Given : Not Given Erythromycin Given: Not Given WEIGHT/LENGTH BABY A Infant Birthweight (gm): 3105 Weight (lb): 6 Weight (oz): 14 Length (in): 19.00 Length (cm): 48.26 CORD INFORMATION BABY A No. Cord Vessels: 3 Nuchal Cord : N/A Cord Blood Taken: Yes Suction: Mouth; Nose ASSESSMENT BABY A Complications: None Physical Findings at Delivery: Within Normal Limits Infant Respirations: Appears Normal Sheet Metal Worker/ALS Called : Yes Care By: Ian STRICKLAND RN Transferred To: Remains with Mother
== END 2018-10-05 15:10 | disposition home or self-care (01) | DRG 788 ==
LOC: OBT 18:08 → L-D 18:09 → OBT 18:55 → L-D 20:30 → ICU 10-03 02:46 → PP1 10-03 14:38
PROVIDERS: ADMIT Obstetrics & Gynecology; ATTEND Obstetrics & Gynecology
PROC: 10D00Z1 Extraction of Products of Conception, Low, Open Approach (ICD-10-PCS; principal; 2018-10-03)
DX: O60.23X0 Term delivery with preterm labor, third trimester, not applicable or unspecified (principal); O34.211 Maternal care for low transverse scar from previous cesarean delivery; O99.02 Anemia complicating childbirth; D64.9 Anemia, unspecified; I95.81 Postprocedural hypotension; Z3A.36 36 weeks gestation of pregnancy; Z37.0 Single live birth
CPT/HCPCS: 80307; 85025; 85610; 85730; 86592; 86850; 86900; 86901; 87081; 87340; 90686; 90715; 99464; G0463; J0690; J1265; J2274; J2370; J2405; J2590; J2765; J3010; J7120

== ENCOUNTER 2019-01-30 20:07 | Emergency (ER) | payer MEDICAID ==
[~2019-01-30] VITALS: Ht 160 cm; Wt 70.3 kg
[~2019-01-30 20:07] MED LIST changes: +IBUP-1542 PO; -OXYTOCIN 30 UNITS/LR 500 ML BAG IV ONE; +PHEN177S43 MT
[2019-01-30 20:10] VITALS: Ht 160 cm; Wt 70.3 kg
[2019-01-30 22:14] VITALS: BP 115/67; PULSE 60; RESP 18
--- NOTE | 2019-01-31 05:38 | ERD ---
ER Documentation Chief Complaint Chief Complaint ST WITH DIZZINESS; MILD COUGH X4DAYS HPI 23-year-old female presents emergency department complaining of intermittent sore throat for the past 4 days. Symptoms are alleviated with naproxen. She is also had full body aches and itching to her eyes bilaterally. She denies any syncope, falls, or other symptoms at this time. Symptoms are mild in severity. ROS All systems reviewed and are negative except as per history of present illness. Medications Home Meds Active Scripts Ibuprofen* (Motrin*) 600 Mg Tab, 600 MG PO Q6, #30 TAB Prov:DENTON STINSON PA-C 01/30/19 Phenol* (Chloraseptic* Hessmer) 177 Ml Hessmer.pump, 2 SPRAY MT Q2H PRN for SORE THROAT, #1 BOTTLE Prov:DENTON STINSON PA-C 01/30/19 Reported Medications Vit No.124/Iron/FA ( Vitamin Tablet) 1 Each Tablet, 1 EACH PO D AILY, TAB 09/03/18 Ferrous Sulfate* (Ferrous Sulfate*) 325 Mg Tabec, 325 MG PO DAILY, TAB 09/03/18 Allergies Allergies: Coded Allergies: No Known Allergy (Unverified , 10/02/18) PMhx/Soc Medical and Surgical Hx: pt denies Medical Hx, pt denies Surgical Hx Hx Miscellaneous Medical Probl: No Hx Alcohol Use: No Hx Substance Use: No Hx Tobacco Use: No FmHx Family History: No diabetes Physical Exam Vitals Vital Signs Date Temp Pulse Resp B/P (MAP) Pulse Ox O2 O2 Flow FiO2 Time Delivery Rate 01/30/19 98.6 60 18 115/67 99 Room Air 22:14 (83) 01/30/19 98.0 56 19 113/56 97 20:10 (75) Physical Exam Const: No acute distress Head: Atraumatic Eyes: Normal Conjunctiva ENT: Normal External Ears, Nose and Mouth. Mild erythema to the posterior pharynx. Uvula is midline. No exudate. Neck: Full range of motion. No meningismus. Resp: Clear to auscultation bilaterally Cardio: Regular rate and rhythm, no murmurs Abd: Soft, non tender, non distended. Normal bowel sounds Skin: No petechiae or rashes Back: No midline or flank tenderness. No neurological deficits. Ext: No cyanosis, or edema Neur: Awake and alert Psych: Normal Mood and Affect Procedures/MDM 23-year-old female presenting to the emergency department complaining of full body aches and fevers and sore throat. Patient is nontoxic, well-appearing, afebrile, in no acute distress. The patient's clinical presentation is very consistent with an acute viral syndrome. The patient does not exhibit any clinical signs or symptoms concerning for serious bacterial infection or systemic illness. Based on history and clinical exam findings the patient does not appear to have evidence of pneumonia, strep pharyngitis, urinary tract infection, bacteremia, sepsis, or meningitis. For these reasons I do not believe it is necessary to obtain laboratory testing or diagnostic imaging. I believe it would be appropriate for symptom control, and close outpatient primary care follow-up. Based on patient's history of present illness and physical examination the decision was made to discharge. There is no evidence of life threatening injuries or illnesses at this time. On re-examination, patient resting in no distress, stable vital signs, reports feeling better and safe for discharge with outpatient follow up with PMD in 1-2 days. Patient given return precautions. Departure Diagnosis: Primary Impression: Influenza-like symptoms Condition: Fair Patient Instructions: Influenza (Adult) [facility] Usted se becerra hecho un examen mdico de control que le indica que no est en jayy condicin que requiera tratamiento urgente en el Departamento de Emergencia. Un estudio ms profundo y el tratamiento de lacey condicin pueden esperar sin ningn riesgo hasta que usted sea atendida/o en el consultorio de lacey mdico o jayy clnica. Es responsabilidad suya arreglar jayy frank para el seguimiento del sean. MANEJO DE CONDICIONES NO URGENTES EN EL FUTURO 1) Si usted tiene un mdico de atencin primaria: Usted debera llamar a lacey mdico de atencin primaria antes de venir al departamento de emergencia. Despus de las horas de consultorio, lacey doctor o lacey asociado/a est disponible por telfono. El mdico o enfermero de yari en el servicio telefnico puede asesorarle por asmita medio para atender el problema, o sean contrario se puede programar jayy frank. 2) Si usted no tiene un mdico de atencin primaria: Llame al mdico o clnica de referencia que aparece abajo doris las horas de consultorio para hacer jayy frank para que le vean. CLINICAS: [place] [address] [phone] [facility] [phone] [facility] [phone] [place] [address] [phone] [place] [address] [phone] [facility] [phone] [address] Additional Instructions: Llame al doctor MAANA y viviane jayy FRANK PARA DENTRO DE 1-2 CEE.Dgale a la secretaria que nosotros le instruimos hacer esta frank.Avise o llame si lacey condicin se empeora antes de la frank. Regresa aqui si peor o no mejor. DENTON STINSON PA-C Jan 31, 2019 05:38
== END 2019-01-30 22:15 | disposition home or self-care (01) ==
LOC: FTE 20:07
DX: J02.9 Acute pharyngitis, unspecified (principal)
CPT/HCPCS: 99282